=== PATIENT | male | born 1950 | race Caucasian/White ===

== ENCOUNTER 2024-04-29 05:52 | Day surgery (SDC) | payer BC ==
--- NOTE | 2024-04-24 09:18 | RAD REPORT ---
EXAMINATION: TWO VIEW CHEST XR CLINICAL INDICATION: PRE OP TECHNIQUE: 2 views of the chest was performed. COMPARISON: 05/03/2022 FINDINGS: Linear atelectasis is present in both lung bases. The lungs are otherwise clear. The heart is upper l imit of normal in size. No displaced fractures evident.
--- NOTE | 2024-04-27 12:12 | EKG ---
Test Date: 2024-04-24 Test Time: 09:46:23 Agriculture Engineer: ALEJO MEASUREMENT RESULTS: Intervals: Rate: 81 AR: 176 QRSD: 84 QT: 362 QTc: 420 [place]: P: 53 AR: 176 QRS: 24 T: 55 INTERPRETIVE STATEMENTS: Normal sinus rhythm Normal ECG No previous ECG available for comparison Electronically Signed On 04-27-24 12:10:48 [employer] HELPER by Rico Graves
[2024-04-29] MEDS: Ringers Lactate 1,000 ML IV ONE ×2 (06:20→09:15)
[2024-04-29] MEDS: Oxycodone HCl/Acetaminophen 5/325 MG TAB ONE (06:20)
[2024-04-29] MEDS: CELECOXIB 100 MG CAPSULE ONE (06:20)
[2024-04-29] MEDS: GABAPENTIN 100 MG CAP ONE (06:20)
[2024-04-29] MEDS: ACETAMINOPHEN 500 MG TAB ONE (06:20)
[2024-04-29] MEDS: dexAMETHasone 10 MG/ML VIAL ONE (06:24)
[2024-04-29] MEDS: LIDOCAINE 1% MPF 5 ML VIAL ONE (06:24)
[2024-04-29] MEDS: FENTANYL CITR 100 MCG/2 ML ONE (06:25)
[2024-04-29] MEDS: EPINEPHRINE 1 MG/ML VIAL ONE (06:25)
[2024-04-29] MEDS: DEXMEDETOMIDINE HCL 200 MCG/2 ML VIAL ONE (06:26)
[2024-04-29] MEDS: MIDAZOLAM HCL 2 MG/2 ML INJ ONE (06:26)
[2024-04-29] MEDS: BUPIVACAINE 0.25% PF 30 ML VIAL ONE (06:27)
[2024-04-29] MEDS: BUPIVACAINE 0.5% PF 10 ML VIAL ONE (06:27)
[2024-04-29] MEDS: MAGNESIUM SULFATE 1 gm IVPB 1 GM/100 ML BAG IV ONE (06:28)
[2024-04-29] MEDS: TRANEXAMIC ACID 1,000 MG/10 ML VIAL IV ONE (07:23)
[2024-04-29] MEDS ORDERED: LIDOCAINE 2% MPF 5 ML VIAL ONE ×3 (08:08→08:32)
[2024-04-29] MEDS ORDERED: propofoL 200 MG/20 ML VIAL IV ONE (08:08)
[2024-04-29] MEDS: CEFAZOLIN SODIUM 2 GM/VIAL ONE (08:13)
[2024-04-29] MEDS ORDERED: KETAMINE HCL IN 0.9 % NACL 50 MG/5 ML SYRINGE IV ONE (08:33)
[2024-04-29] MEDS ORDERED: DOCUSATE NA 100 MG CAP PO PRN ×2 (10:54)
[2024-04-29] MEDS ORDERED: ACETAMINOPHEN 325 MG TABLET PO PRN (10:54)
--- NOTE | 2024-04-29 10:54 | P.BOP ---
Preoperative diagnosis: Right knee osteoarthritis Postoperative diagnosis: Same Primary procedure: Right total knee arthroplasty Manager Hospitality: NONE,NONE Estimated blood loss: 50 cc Specimen: Right knee bone remnants Findings: See dictation Anesthesia: General Complications: None Implants: Biomet Zulay persona 10 CR femur, F tibia, 10 CR poly, 32 patella Fluids & blood products: Per anesthesia record; tourniquet time 70 minutes at 300 mmHg Transferred to: Recovery Room Condition: Good
--- NOTE | 2024-04-29 11:01 | P.OP ---
Preoperative diagnosis: Right knee osteoarthritis Postoperative diagnosis: Same Primary procedure: Right total knee arthroplasty Anesthesia: General Estimated blood loss: 50 cc Specimen: Right knee bone remnants Findings: See dictation Operative Technique: Indication For Procedure: Tyrell is a 74 year-old male presenting to my clinic with signs, symptoms and x-ray findings consistent with severe right knee osteoarthritis. I discussed with the patient at length risks and benefits associated with operative and nonoperative treatment. He had failed conservative treatment measures and had significant difficulties with ADLs secondary to his pain. We discussed operative treatment and elected to proceed with right total knee arthroplasty. He expressed understanding and elected to proceed with operative treatment. Description Of Procedure: After informed consent was obtained, the patient was identified in the preoperative holding area. The right lower extremity was marked. The patient was then taken to the PACU where he underwent a right lower extremity adductor canal block performed by Anesthesia. He was then taken to the operating room, transferred to the operating table in supine fashion, and placed under general anesthesia. The right lower extremity was then prepped and draped in usual sterile fashion. A time-out was initiated. The correct patient and procedure were confirmed and identified. The patient did receive his preoperative prophylactic antibiotics. The right lower extremity was then exsanguinated and tourniquet was inflated to 300 mmHg. Approximately 15 cm longitudinal incision was made centered over the anterior aspect of the right knee. Dissection was then taken to the extensor mechanism and a medial parapatellar arthrotomy was performed. The patella was everted and dislocated laterally and the knee was flexed in the fat pad. Medial and lateral meniscus and ACL were all excised exposing the distal femur. Excess hypertrophic sy novium was also excised within the suprapatellar pouch. The patient had an MRI of his right knee preoperatively for surgical planning and creation of cutting blocks. The cutting block was then placed over the distal femur and pins were then placed. The distal femoral cutting block was then placed over the pins. An angelo wing was then used to ensure proper depth cut and the distal femur was then cut. The chamfer cutting guide was then placed over the distal end of the femur. Anterior, posterior cuts as well as anterior and posterior chamfer cuts were then made again confirming proper depth of the cut using an Angelo wing. Excess bone remnants were then sent to pathology for further evaluation. Next, attention was taken to the proximal tibia. A tibial jig and tibial cutting block was then placed on proximal aspect of the right tibia and locked into position. Pins were then placed and alignment guide was then used to confirm proper alignment of the cut and then coronal and sagittal planes. Once this was confirmed, the cutting jig was placed over the pins and the proximal tibia was cut. Sizing trays were then selected and size 10 mm spacer was used and there was good overall balance in flexion and extension. Next, the trial implants were then placed using the size 10 standard CR femur and a size F tibia and an 10 mm CR poly. There was overall good range of motion and good stability. The trial implants were then removed. The wound was then irrigated thoroughly with normal saline and the knee was then injected with 20 cc of 0.5% Marcaine both in the posterior capsule and medial and lateral gutters as well as quadriceps tendon and periosteum. The tibia was then punched. The femur was drilled. The cement was then prepared on the back table. Cement was then placed first on the tibial surface followed by size F tibia. Excess cement was removed with Oxford elevators. Size 10 standard CR femur was then placed on the distal femur after cement was placed on the distal femur. Excess cement was then removed and a size 10 mm CR trial poly was then placed. The knee was held in extension as the cement hardened. Undersurface of the patella was prepared debriding osteophytes using rongeurs as well as osteophytes.. Cement was placed on the undersurface of the patella after it was cut and a size 32 patella was placed. Once the cement was hardened, the knee was ranged, there was good overall stability both in flexion, extension and as well as stability with varus and valgus stresses. Trial poly was then removed and a size 10 mm CR poly was then placed and locked into position. The knee was then ranged again. There was good overall range of motion both for flexion and extension with good stability. The wound was then irrigated again thoroughly with normal saline using pulse lavage. Tourniquet was let down. Hemostasis was achieved using Bovie electrocautery. Extensor mechanism was then approximated using a #1 Vicryl both in interrupted and running fashion. The fascia was then approximated using 0 Vicryl. Subcutaneous tissue was approximated with a 2-0 Vicryl. Skin was approximated using yeison. Sterile dressings were applied. The patient was awakened and transferred back in stable condition Complications: None Implants: Biomet persona 10 CR femur, F tibia, 32 patella, 10 CR poly Fluids & blood products: Per anesthesia record; tourniquet time 70 minutes at 300 mmHg Transferred to: Recovery Room Condition: Good
[2024-04-29 11:18] LABS: Hematocrit 37.6 % (39.6-49.0); Hemoglobin 12.9 g/dL (13.6-17.9)
--- NOTE | 2024-04-29 12:41 | RAD REPORT ---
EXAM: XR Knee Right 2 View HISTORY: [facility] MAIN Post Op COMPARISON: None TECHNIQUE: 3 views of the right knee were obtained. FINDINGS: No knee effusion is seen. There is no evidence of acute fracture or dislocation. Sequelae of recent total knee arthroplasty with components in good alignment. Soft tissue gas anteriorly, and skin yeison. No suspicious osseous lesion. IMPRESSION: Expected postoperative findings of right total knee arthroplasty.
[2024-04-29 13:33] VITALS: O2SAT 98
[2024-04-29 13:56] VITALS: BMI 32.9
[2024-04-29] MEDS: CEFAZOLIN SODIUM 2 GM in NA CHLORIDE 0.9% 100 ML IVPB SCH (17:20)
[2024-04-29] MEDS: HYDROCODONE/APAP 7.5/325 MG TAB PO PRN (20:21)
[2024-04-29] MEDS: ATORVASTATIN 40 MG TAB PO SCH (20:22)
[2024-04-29] MEDS: METOPROLOL XL 25 MG TAB PO SCH (20:22)
[2024-04-30] MEDS: TRAMADOL HCL 50 MG TAB PO PRN (01:07)
[2024-04-30 04:38] LABS: Hematocrit 36.3 % (39.6-49.0); Hemoglobin 12.6 g/dL (13.6-17.9)
[2024-04-30] MEDS: ENOXAPARIN 30 MG/0.3 ML SQ SCH (06:14)
[2024-04-30] MEDS: CETIRIZINE HCL 5 MG TABLET PO SCH (09:27)
[2024-04-30] MEDS: lisinopriL 10 MG TAB PO SCH (09:27)
[2024-04-30] MEDS: CELECOXIB 100 MG CAPSULE PO SCH (09:27)
[2024-04-30 12:11] VITALS: BP 105/54; TEMP 97.7
== END 2024-04-30 15:06 | disposition home health service (06) ==
LOC: OR 05:52 → 2ND 10:54 → OR 04-30 15:06
PROVIDERS: ATTEND Orthopaedic Surgery Sports Medicine
PROC: 0SRC0J9 Replacement of Right Knee Joint with Synthetic Substitute, Cemented, Open Approach (ICD-10-PCS; principal; 2024-04-29 08:00)
DX: M17.11 Unilateral primary osteoarthritis, right knee (principal)
CPT/HCPCS: 36415; 71046; 85014; 85018; 88305; 88311; 93005; 94010; 97116; 97139; 97161; 97530; C1776; J0171; J1100; J1650; J2003; J2250; J2704; J3010; J3475; J7120